=== PATIENT | female | born 1960 | race Caucasian/White ===

== ENCOUNTER 2020-12-22 15:30 | Emergency (ER) | payer OTHER ==
[2020-12-22] MEDS ORDERED: Ondansetron ODT 4 MG TAB ONE (16:04)
[2020-12-22] MEDS ORDERED: HYDROcodone/Acetaminophen 5/325 mg Tablet ONE (16:19)
[2020-12-22] MEDS ORDERED: Ketorolac Tromethamine 30 MG/ML VIAL ONE (16:32)
[2020-12-22] MEDS ORDERED: Ketorolac Tromethamine 60 MG/2 ML VIAL ONE (16:33)
== END 2020-12-22 17:05 | disposition home or self-care (01) ==
LOC: NAV ERS 15:30
DX: S42.201A Unspecified fracture of upper end of right humerus, initial encounter for closed fracture (principal); W18.30XA Fall on same level, unspecified, initial encounter; Y93.01 Activity, walking, marching and hiking; I48.91 Unspecified atrial fibrillation; Z79.82 Long term (current) use of aspirin; Z79.899 Other long term (current) drug therapy
CPT/HCPCS: 96372; J1885; Q0162